=== PATIENT | female | born 1975 | race Two or more races ===

== ENCOUNTER 2023-02-06 18:51 | Emergency (ER) | payer MEDICAID ==
[~2023-02-06] VITALS: Ht 165.1 cm; Wt 68.0 kg
[2023-02-06 18:51] VITALS: BP 164/74
--- NOTE | 2023-02-06 19:48 | NUR ---
Patient discharged to home in stable condition. Written and verbal after care instructions given. Patient verbalizes understanding of instruction. Pt ambulatory with a steady gait
== END 2023-02-06 19:49 | disposition home or self-care (01) ==
LOC: ER 18:51
DX: M54.50 Low back pain, unspecified (principal); M79.631 Pain in right forearm; V49.00XA Driver injured in collision with unspecified motor vehicles in nontraffic accident, initial encounter; Y93.89 Activity, other specified; Y92.89 Other specified places as the place of occurrence of the external cause; Y99.8 Other external cause status